=== PATIENT | female | born 1945 | race Caucasian/White ===

== ENCOUNTER 2016-07-16 12:48 | Emergency (ER) | payer OTHER, BC ==
[2016-07-16] MEDS ORDERED: ONDANSETRON 4 MG/2 ML VIAL IVP ONE (13:04)
[2016-07-16] MEDS ORDERED: NS 500 ML IV ONE (13:04)
--- NOTE | 2016-07-16 13:04 | UCPHY ---
H & P Time Seen by Provider: 07/16/16 13:02 Patient Type: Established HPI/ROS: HPI Lightheaded. 71-year-old female by private vehicle with her . This patient has a history of migraine headaches. She reports a gradual onset of which she describes as a typical migraine headache starting about 1 week ago. She describes this is left sided and frontal. She had a typical aura prior to this headache. She reports that the headache has been persisting at a lower level for about a week. She reports that about an hour and half ago at 11:30 a.m. she was getting ready to go out. She was at her dresser. She turned around and had a sudden episode of lightheadedness where she felt like she was going to faint. No vertigo. She was able to sit down. She felt very weak on her feet. The symptoms then cleared after about 5 minutes. She reports that she still feels somewhat "off" but overall feels better. She denies any associated chest pain, palpitations, focal loss of sensation or weakness in her extremities , changes in vision, vertigo, shortness of breath or sudden-onset severe headache. ROS: Constitutional: No fever, no chills. As above. Eyes: No discharge. No changes in vision. ENT: No sore throat. No nasal congestion or rhinorrhea. Respiratory: No cough. No shortness of breath. Cardiac: No chest pain, no palpitations. Gastrointestinal: No abdominal pain, no vomiting, no diarrhea. Genitourinary: No hematuria. No dysuria or increased frequency with urination. Musculoskeletal: No back pain. No neck pain. No myalgias or arthralgias. Skin: No rashes. Neurological: As above. No focal weakness or altered sensation. Past medical history: Prolapsed colon. Migraine headaches. Social history: Here with her . Physical Exam: General Appearance: Alert, no distress. This patient is responding to questions appropriately and in full sentences. This patient appears well- hydrated and well-nourished. Eyes: Pupils equal and round no pallor or injection. No lid edema, erythema or injection. ENT, Mouth: Mucous membranes are moist. The pharyngeal tissues are unremarkable. No edema or swelling. No asymmetry suggestive of abscess. No erythema or exudates. No tongue lacerations or abrasions Respiratory: There are no retractions, lungs are clear to auscultation with good air movement bilaterally. Cardiovascular: Regular rate and rhythm. No murmur. Gastrointestinal: Abdomen is soft and nontender, no masses, bowel sounds normal. No focal tenderness at McBurney's point. No Delaney sign. Neurological: Motor sensory function is grossly intact. Cranial nerves are normal. Cerebellar function normal. Gait is normal. Skin: Warm and dry, no rashes. Musculoskeletal: Neck is supple and nontender. Extremities are symmetrical. All joints range without pain or impingement. Psychiatric: No agitation. No depression. Database: EKG: EKG time is 1:09 p.m.; EKG shows a narrow complex normal sinus rhythm with a ventricular rate of 66. The LA, QRS, QT intervals are within normal limits. There are no ST-T wave changes indicative of ischemic or injury pattern. No evidence of right heart strain. No evidence of WPW, Brugada syndrome, hypertrophic cardiomyopathy. Interpreted by me. Imaging: CT scan of head without contrast: Negative. Results were discussed with staff radiologist Dr. Tk Fermin. Procedures: Emergency department course: IV placed. She was placed on a logistics solution manager. She was started on IV normal saline with 500 cc to be given over 1 hour. EKG performed. She will be sent for CT imaging of her head. 2:30 p.m., patient re-evaluated. Vital signs reviewed, patient moderately hypertensive. Otherwise vital signs are normal. Repeat neurologic Assessment is nonfocal. Results of her EKG, CT scan and blood work were discussed with her and her . Plan for admission to observation telemetry at [facility] reviewed. They endorse. 2:35 p.m., spoke with Dr. Pendleton, hospitalist. She accepts the patient for admission. 3:10 p.m., informed by nursing staff that the patient now does not want to be admitted and is taking her home. They will follow up with her primary care physician for further evaluation. I wrote some basic discharge instructions. I did not have a chance to see the patient before she left with her . Hospitalist service was made aware that the patient left the Urgent Care against medical advice. Differential Diagnosis: The differential diagnosis on this patient includes but is not limited to near syncope, TIA, vasovagal event. CVA, acute coronary syndrome, pulmonary embolism , subarachnoid hemorrhage, arrhythmia, unlikely. This represents a partial list of diagnoses considered. These considerations are based on history, physical exam, past history, reassessment and diagnostic testing. Constitutional: Initial Vital Signs Temperature (C) 36.1 C 07/16/16 13:07 Heart Rate 77 07/16/16 13:07 Respiratory Rate 16 07/16/16 13:07 Blood Pressure 162/104 H 07/16/16 13:07 O2 Sat (%) 96 07/16/16 13:07 O2 Delivery Mode Room Air Allergies/Adverse Reactions: acetaminophen [From Vicodin] Allergy (Intermediate, Verified 07/16/16 13:11) Hives cephalexin [Cephalexin] Allergy (Intermediate, Verified 07/16/16 13:11) HEADACHES hydrocodone bitartrate [From Vicodin] Allergy (Intermediate, Verified 07/16/16 13:11) Hives sulfamethoxazole [From Bactrim] Allergy (Intermediate, Verified 07/16/16 13:11) Hives trimethoprim [From Bactrim] Allergy (Intermediate, Verified 07/16/16 13:11) Hives Home Medications: Medication Instructions Recorded Duloxetine HCl 07/16/16 Medical Decision Making - Data Points Laboratory Results: Laboratory Results 07/16/16 13:15 07/16/16 13:15 07/16/16 07/16/16 07/16/16 13:15 13:15 13:15 WBC 4.68 10^3/uL 10^3/uL (3.80-9.50) RBC 4.31 10^6/uL 10^6/uL (4.18-5.33) Hgb 14.4 g/dL g/dL (12.6-16.3) Hct 41.4 % % (38.0-47.0) MCV 96.1 fL fL (81.5-99.8) MCH 33.4 pg pg (27.9-34.1) MCHC 34.8 g/dL g/dL (32.4-36.7) RDW 12.2 % % (11.5-15.2) Plt Count 246 10^3/uL 10^3/uL (150-400) MPV 9.8 fL fL (8.7-11.7) Neut % (Auto) 55.2 % % (39.3-74.2) Lymph % (Auto) 31.8 % % (15.0-45.0) [place] % (Auto) 9.8 % % (4.5-13.0) Eos % (Auto) 2.6 % % (0.6-7.6) Baso % (Auto) 0.4 % % (0.3-1.7) Nucleat RBC Rel Count 0.0 % % (0.0-0.2) Absolute Neuts (auto) 2.58 10^3/uL 10^3/uL (1.70-6.50) Absolute Lymphs (auto) 1.49 10^3/uL 10^3/uL (1.00-3.00) Absolute Monos (auto) 0.46 10^3/uL 10^3/uL (0.30-0.80) Absolute Eos (auto) 0.12 10^3/uL 10^3/uL (0.03-0.40) Absolute Basos (auto) 0.02 10^3/uL 10^3/uL (0.02-0.10) Absolute Nucleated RBC 0.00 10^3/uL 10^3/uL (0-0.01) Immature Gran % 0.2 % % (0.0-1.1) Immature Gran # 0.01 10^3/uL 10^3/uL (0.00-0.10) PT 12.5 SEC SEC (12.0-15.0) INR 0.96 (0.83-1.16) APTT 30.2 SEC SEC (23.0-38.0) Sodium 136 mEq/L mEq/L (134-144) Potassium 3.7 mEq/L mEq/L (3.5-5.2) Chloride 97 mEq/L mEq/L (97-110) Carbon Dioxide 25 mEq/l mEq/l (22-31) Anion Gap 14 mEq/L mEq/L (8-16) BUN 12 mg/dL mg/dL (7-23) Creatinine 0.7 mg/dL mg/dL (0.6-1.0) Estimated GFR > 60 Glucose 97 mg/dL mg/dL (70-100) Calcium 9.3 mg/dL mg/dL (8.5-10.4) Troponin I < 0.012 ng/mL ng/mL (0-0.034) Medications Given: Discontinued Medications Sodium Chloride (Ns) 500 mls @ 0 mls/hr IV ONCE ONE PRN Reason: As Directed Stop: 07/16/16 13:05 Last Admin: 07/16/16 13:26 Dose: 500 mls Ondansetron HCl (Zofran) 4 mg IVP EDNOW ONE Stop: 07/16/16 13:05 Last Admin: 07/16/16 13:26 Dose: 4 mg Departure - Departure Disposition: Against Medical Advice Clinical Impression: Syncope, Headache Condition: Good Instructions: Syncope (ED) Additional Instructions: return for worsening Headache, lightheadedness fainting, or weakness. Referrals: Nora Saleem MD [Primary Care Provider] - As per Instructions - PQRS PQRS Measurement: 134: Depression screening and followup, PRIME MD-PHQ2 (12 years and older) Over the last 2 weeks, how often have you been bothered by any of the following problems? 1. Feeling down, depressed, or hopeless? 2. Little interest or pleasure in doing things? Answered no to both questions. 130: Documentation of medications. Reviewed all patient medications, doses, route and frequency. 226: Do you smoke? No. 47: 65 and older: Advanced care planning. Patient designates surrogate decision maker as spouse. 51: 18 years old and older with diagnosis of COPD, spirometry performance. NA 52: 18 years old and older with COPD and symptoms of COPD or FEV1<60% predicted prescribed a B Agonist. NA
--- NOTE | 2016-07-16 13:10 | CPEKG ---
Heart Rate: 66 RR Interval: 909 P-R Interval: 196 QRSD Interval: 78 QT Interval: 424 QTC Interval: 445 P [place]: 62 QRS [place]: 27 T Wave [place]: 40 EKG Severity - BORDERLINE ECG - EKG Impression: SINUS RHYTHM EKG Impression: PROBABLE LEFT ATRIAL ABNORMALITY Electronically Signed By: Reynold Jo 16-Jul-2016 15:44:01
[2016-07-16 13:11] VITALS: BP 162/104; PULSE 77; RESP 16; TEMP 97; O2SAT 96
[2016-07-16 13:26] LABS: % IMMATURE GRANULYOCYTES 0.2 % (0.0-1.1); ABSOLUTE IMMATURE GRANULOCYTES 0.01 10^3/uL (0.00-0.10); ADD DIFF? NO; ADD MORPH? NO; ADD SCAN? NO; ATYPICAL LYMPHOCYTE FLAG 80 (0-99); FRAGMENT RBC FLAG 0 (0-99); HEMATOCRIT 41.4 % (38.0-47.0); HEMOGLOBIN 14.4 g/dL (12.6-16.3); LEFT SHIFT FLG 0 (0-99); LIPEMIA HEMOLYSIS FLAG 90 (0-99); MEAN CELL HEMOGLOBIN 33.4 pg (27.9-34.1); MEAN CELL HEMOGLOBIN CONCENTR. 34.8 g/dL (32.4-36.7); MEAN CELL VOLUME 96.1 fL (81.5-99.8); MEAN PLATELET VOLUME 9.8 fL (8.7-11.7); PLATELET CLUMPS FLAG 0 (0-99); PLATELET COUNT 246 10^3/uL (150-400); RED BLOOD CELL COUNT 4.31 10^6/uL (4.18-5.33); RED CELL DISTRIBUTION WIDTH 12.2 % (11.5-15.2)
[2016-07-16 13:37] LABS: INR 0.96 (0.83-1.16); PROTIME(PATIENT) 12.5 SEC (12.0-15.0)
[2016-07-16 13:38] LABS: APTT 30.2 SEC (23.0-38.0)
[2016-07-16 13:44] LABS: ANION GAP 14 mEq/L (8-16); CALCIUM 9.3 mg/dL (8.5-10.4); CARBON DIOXIDE 25 mEq/l (22-31); CHLORIDE 97 mEq/L (97-110); CREATININE 0.7 mg/dL (0.6-1.0); GLOMERULAR FILTRATION RATE > 60; GLUCOSE 97 mg/dL (70-100); POTASSIUM 3.7 mEq/L (3.5-5.2); SODIUM 136 mEq/L (134-144)
[2016-07-16 13:53] LABS: TROPONIN I < 0.012 ng/mL (0-0.034)
== END 2016-07-16 15:10 | disposition left against medical advice (07) ==
LOC: CED 12:48 → UNDOADMOB 14:35 → CEDHOLD 14:35 → CED 15:10
DX: R42 Dizziness and giddiness (principal)
CPT/HCPCS: 70450; 93005; 96361; 96374; G0463; J2405; 80048-PO; 84484-PO; 85025-PO; 85610-PO; 85730-PO

== ENCOUNTER → 2016-11-19 | Outpatient (CLI) | payer OTHER, BC | LOC: CIMAGING 08:33 | PROVIDERS: ATTEND Physician Assistant | DX: R10.13 Epigastric pain (principal); R30.0 Dysuria | CPT/HCPCS: 76705-PO ==

== ENCOUNTER → 2017-12-13 | Outpatient (CLI) | payer OTHER, BC | LOC: CIMAGING 13:55 | PROVIDERS: ATTEND Family Medicine | DX: Z12.31 Encounter for screening mammogram for malignant neoplasm of breast (principal) ==